=== PATIENT | male | born 1955 | race Caucasian/White ===

== ENCOUNTER 2025-03-05 12:24 | Outpatient (CLI) | payer MEDICARE, SELFPAY ==
--- NOTE | ~2025-03-05 | PE_ITS ---
EXAMINATION: PET_PETPSMAST_PT DATE: 03/05/2025 15:08 INDICATION: Prostate cancer TECHNIQUE: 4.219 mCi of Illucix Ga-68([id number]) was administered i.v. Low dose computed jazzmine graphy (CT) images were acquired from the base of the brain to the base of the brain to the proximal thighs for attenuation correction and anatomic localization. Positron emission tomography (PET) image s were acquired in the same distribution beginning 106 minutes after injection. Images including fuse d PET/CT images were reconstructed in axial, coronal, and sagittal planes. Automated exposure control technique was employed. The dose-length product was 855.83mGy-cm. COMPARISON: None FINDINGS: Head/neck: Typical pattern of symmetric physiologic increased activity in the lacrimal, parotid and submandibula r glands as well as along the mucosa of the nasal and oral cavities, pharynx and hypopharynx. No path ologically enlarged cervical lymphadenopathy or suspicious foci of increased uptake in the visualized head or neck. Chest: Dependent atelectasis in both lungs. No suspicious pulmonary nodules, pneumonia, pulmonary edema or p leural effusion. Heart size is normal. No pericardial effusion. Small of atherosclerotic coronary art cody calcification. Thoracic aorta is normal in caliber. No pathologically enlarged or PSMA avid thora cic lymphadenopathy. Abdomen/pelvis/proximal thighs: Physiologic renal accumulation and excretion of activity in the kidneys, bladder and along portions o f ureters. Photopenic defects associated with low-attenuation parapelvic cysts in the left kidney and a 1.7 cm intraparenchymal cyst at the right kidney. Prostatomegaly measuring 5.5 x 4.2 cm. There is subtle asymmetric uptake at the right posterior inferior aspect of the prostate with maximal SUV of 3 .7. Normal degree and slightly heterogenous pattern of increased uptake throughout the liver and sple en without radiologic correlate or dominant PSMA avid lesion. The gallbladder, pancreas and bilateral adrenal glands are normal. Moderate uptake scattered throughout the bowels with typical duodenal and proximal jejunal predominance and without radiologic correlate, also likely physiologic. No other ab normal foci of increased uptake or pathologically enlarged lymphadenopathy in the abdomen, pelvis or proximal thighs. Musculoskeletal: No suspicious lytic, blastic or abnormally PSMA avid bone lesions. Moderate thoracic spondylosis with bridging osteophytes at multiple levels consistent with diffuse idiopathic skeletal hyperostosis (DI SH). 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 IMPRESSION: 1. Subtle asymmetric mild uptake at the right posterior aspect of the prostate with maximal SUV of 3. 7 likely representing the site of reported primary prostate cancer. No evident metastatic disease. Reviewed, dictated and finalized at location A. IMPRESSION: 1. Subtle asymmetric mild uptake at the right posterior aspect of the prostate with maximal SUV of 3.7 likely representing the site of reported primary prosta te cancer. No evident metastatic disease.
--- OUTSIDE RECORDS SUMMARY | 2025-03-05 13:43 | XMS_ITS | Clinical Summary ---
Author Organization [facility] Address [address] [place] [address] Phone Care Team Providers Care Line Pilot Name Role Phone Gunnar Sim MD Primary Care Provider Allergies No known active allergies Medications acetaminophen (TYLENOL) 325 mg tablet Take 2 Tablets (650 mg) by mouth every 6 hours as needed for Pain, Mild / Temperature (pain/temp). 5 Active PHENobarbitaL 97.2 mg tabletIndicatio ns:Seizure disorder (CMS/HCC) Take 1 Tablet (97.2 mg) by mouth daily. 90 Tablet Active phenytoin sodium (DILANTIN) 100 mg extended release capsule Take 3 Capsules (300 mg) by mouth daily. 270 Capsule Active Active Problems Problem Noted Date Diagnosed Date Bandemia 12/31/2024 S/P laparoscopic surgery 12/31/2024 SBO (small bowel obstruction) 12/30/2024 MARVIN (acute kidney injury) 12/30/2024 Seizure disorder 12/30/2024 Enlarged prostate 12/30/2024 Encounters Date Type Department Care Team Description 02/16/2025 External Device Data ST[facility] ABSTRACTION Provider, Abstract 01/30/2025 External Device Data ST[facility] ABSTRACTION Provider, Abstract 01/30/2025 External Device Data [facility] ABSTRACTION Provider, Abstract 01/30/2025 External Device Data ST[facility] ABSTRACTION Provider, Abstract 01/17/2025 3:15 PM CDT Office Visit [facility] Trauma and General Surgery [address] [place] [address] Jose Harp MD SBO (small bowel obstruction) ([facility]) (Primary Dx) 01/09/2025 External Device Data STL ABSTRACTION Provider, Abstract 01/02/2025 External Device Data ST[facility] ABSTRACTION Provider, Abstract 01/02/2025 External Device Data ST[facility] ABSTRACTION Provider, Abstract 01/02/2025 External Device Data ST[facility] ABSTRACTION Provider, Abstract 12/30/2024 5:15 AM CDT Anesthesia Event [facility] Operating Room [address] [place] [address] Uzair Gonsalves MD 12/30/2024 4:55 AM CDT - 12/30/2024 6:15 AM CDT Surgery [facility] Operating Room [address] [place] [phone] Lauri Ott MD LAPAROSCOPIC ASSISTED LYSIS OF ADHESIONS, RELEASE OF SMALL BOWEL OBSTRUCTION 12/30/2024 Travel 12/29/2024 11:41 PM CDT - 01/02/2025 2:27 PM CDT Hospital Encounter [facility] Surgical [id number] [place] [phone] Javed Pierce MD Bagam, Vaghdevi, MD SBO (small bowel obstruction) ([facility]) Discharge Disposition: Home or Self Care from Last 3 Months Social History Tobacco Use Types Packs/Day Years Used Date Smoking Tobacco: Never Smokeless Tobacco: Never Tobacco Cessation:Counseling Given: Not Answered Feeling Safe Answer Date Recorded Are you in a relationship wi th someone who hurts you emotionally and/or physically? No 12/30/2024 Food Insecurity Answer Date Recorded Patient needs follow up regardin 01/17/2025 Transportation Needs Answer Date Record ed Patient needs follow up regardin 01/17/2025 Housing Stability Answer Date Recorded Social/Environmental Concerns No concerns Utility Needs Answer Date Recorded Patient needs follow up regardin 01/17/2025 Sex and Gender Information Value Date Recorded Sex Assigned at Not on file Legal Sex Male 7:45 PM CDT Gender Identity Not on file Sexual Orientation Not on file Last Filed Vital Signs Vital Sign Reading Time Taken Comments Blood Pressure 122/76 01/17/2025 3:08 PM CDT Pulse 78 01/17/2025 3:08 PM CDT Temperature 36.7 C (98.1 F) 01/02/2025 8:26 AM CDT Respiratory Rate 18 01/02/2025 8:26 AM CDT Oxygen Saturation 96% 01/02/2025 8:26 AM CDT Inhaled Oxygen Concentration - - Weight 72.6 kg (160 lb) 01/17/2025 3:08 PM CDT Height 177.8 cm (5' 10) 01/17/2025 3:08 PM CDT Body Mass Index 22.96 01/17/2025 3:08 PM CDT Plan of Treatment Health Maintenance Due Date Last Done Comments DTAP/TDAP/TD VACCINES (1 - Tdap) 1976 COLORECTAL SCREENING 2002 Colorectal Cancer Screening 2002 FIT-DNA Q 3 years 2002 FIT/FOBT Q 1 year 2002 Flex Sig/CT Colonography Q 5 years 2002 PNEUMOCOCCAL VACCINE 50+ YEARS (1 of 1 - PCV) 03/05/20 07 ZOSTER VACCINE (1 of 2) 2007 INFLUENZA VACCINE (#1) 2024 RSV VACCINE (60+ or ) (1 - 1-dose 75+ series) 2032 Procedures Procedure Name Priority Date/Time Associated Diagnosis Comments TELEMETRY REPORT 01/03/2025 3:03 PM CDT TELEMETRY REPORT 01/03/2025 2:56 PM CDT TELEMETRY REPORT 01/02/2025 3:02 PM CDT TELEMETRY REPORT 01/02/2025 2:28 PM CDT TELEMETRY REPORT 01/01/2025 3:38 PM CDT TELEMETRY REPORT 01/01/2025 3:10 PM CDT TELEMETRY REPORT 01/01/2025 2:44 PM CDT TELEMETRY REPORT 01/01/2025 2:30 PM CDT BASIC METABOLIC PANEL Routine 01/01/2025 4:04 AM CDT CBC WITH DIFFERENTIAL Routine 12/31/2024 4:33 AM CDT COMPREHENSIVE METABOLIC PANEL Routine 12/31/2024 4:33 AM CDT MAGNESIUM LEVEL Routine 12/31/2024 4:33 AM CDT PHENOBARBITAL LEVEL Routine 12/30/2024 1 1:57 AM CDT PHENYTOIN LEVEL, FREE Routine 12/30/2024 11:57 AM CDT POC GLUCOSE Routine 12/30/2024 8:13 AM CDT VERIFICATION BLOOD GROUP Stat 12/30/2024 5:05 AM CDT TYPE AND SCREEN Stat 12/30/2024 4:59 AM CDT PSA Routine 12/30/2024 4:59 AM CDT LAPAROSCOPY DIAGNOSTIC/OPERATIVE 12/30/2024 4:55 AM CDT UNKNOWN XR ABDOMEN FOR FEEDING TUBE 1 VW Stat 12/30/2024 2:20 AM CDT LACTIC ACID Stat 12/30/2024 1:04 AM CDT CBC WITH DIFFERENTIAL Stat 12/30/2024 1:04 AM CDT COMPREHENSIVE METABOLIC PANEL Stat 12/30/2024 1:04 AM CDT MAGNESIUM LEVEL Stat 12/30/2024 1:04 AM CDT EKG 12-LEAD Stat 12/30/2024 12:[address] PRIOR STUDY Routine 12/29/2024 6:45 PM CDT X-RAY PRIOR STUDY Routine 12/29/2024 5:3 5 PM CDT from Last 3 Months Results * TELEMETRY REPORT (01/03/2025 3:03 PM CDT) Only the most recent of8 resultswithin the time period is included. us Provider Scanning ECG ORDERABLES Final Result * (ABNORMAL) BASIC METABOLIC PANEL (01/01/2025 4:04 AM CDT) SODIUM 135(L) 136 - 145 mmol/L 01/01/2025 5:07 AM CDT [facility] POTASSIUM 4.5 3.4 - 5.1 mmol/L 01/01/2025 5:07 AM T [facility] CHLORIDE 102 98 - 107 mmol/L 01/01/2025 5:07 AM T [facility] CO2 25 22 - 29 mmol/L 01/01/2025 5:07 AM T [facility] CALCIUM 8.3(L) 8.6 - 10.4 mg/dL 01/01/2025 5:07 AM T [facility] BUN 9 6 - 20 mg/dL 01/01/2025 5:07 AM T [facility] CREATININE 0.86 0.67 - 1.17 mg/dL 01/01/2025 5:07 AM T [facility] GLUCOSE 103(H) 74 - 99 mg/dL 01/01/2025 5:07 AM T [facility] GFR >60 >=60 mL/min/1.7 3 sq meter 01/01/2025 5:07 AM [facility] Comment:eGFR calculated with 2020 CKD-EPI equation. Vegetarian diet, extremely high or low muscle mass, and may affect results. Cystatin C with Glomerular Filtration Rate is a suitable alternative for these patients. ANION GAP 8 8 - 16 mmol/L 01/01/2025 5:07 AM T [facility] Blood Venipuncture / Unknown 01/01/2025 4:04 AM CDT 01/01/2025 4:28 AM CDT us Rc Huber MD CHEMISTRY ORDERABLES Final Res ult [facility] CLIA# [id number] [place] [address] * (ABNORMAL) CBC WITH DIFFERENTIAL (12/31/2024 4:33 AM CDT) Only the most recent of2 resultswithin the time period is included. [facility] WBC 10.0(H) 4.0 - 9.8 K/uL 12/31/2024 6:30 AM CDT [facility] RBC 4.22(L) 4.50 - 5.40 M/uL 12/31/2024 6:30 AM CDT [facility] HEMOGLOBIN 13.0(L) 13.6 - 16.5 g/dL 12/31/2024 6:30 AM CDT [facility] Comment:Cbc results verified by caterina jennings rn HEMATOCRIT 39.3(L) 40.0 - 48.0 % 12/31/2024 6:30 AM CDT [facility] MCV 93.1 82.0 - 99.0 fL 12/31/2024 6:30 AM CDT [facility] MCH 30.8 27.2 - 32.6 pg 12/31/2024 6:30 AM CDT [facility] MCHC 33.1 31.5 - 35.5 g/dL 12/31/2024 6:30 AM CDT [facility] RDW 14.8(H) 11.5 - 14.5 % 12/31/2024 6:30 AM CDT [facility] RDW-STDEV 51.0(H) 37.1 - 48.7 fL 12/31/2024 6:30 AM CDT [facility] PLATELETS 199 140 - 350 K/uL 12/31/2024 6:30 AM CDT [facility] MPV 9.8 9.3 - 12.4 fL 12/31/2024 6:30 AM CDT [facility] NEUTROPHILS 70 % 12/31/2024 6:30 AM CDT [facility] LYMPHOCYTES 13 % 12/31/2024 6:30 AM CDT [facility] MONOCYTES 16 % 12/31/2024 6:30 AM CDT [facility] EOSINOPHILS 1 % 12/31/2024 6:30 AM CDT [facility] BASOPHILS 1 % 12/31/2024 6:30 AM CDT [facility] IMMATURE GRANULOCYTES 0 % 12/31/2024 6:30 AM CDT [facility] NEUTROPHIL ABSOLUTE 6.99 1.90 - 7.00 K/uL 12/31/2024 6:30 AM CDT [facility] LYMPHOCYTE ABSOLUTE 1.31 0.70 - 4.50 K/uL 12/31/2024 6:30 AM CDT [facility] MONOCYTE ABSOLUTE 1.55(H) 0.10 - 1.30 K/uL 12/31/2024 6:30 AM CDT [facility] EOSINOPHIL ABSOLUTE 0.10 0.00 - 0.70 K/uL 12/31/2024 6:30 AM CDT [facility] BASOPHILS ABSOLUTE 0.05 0.00 - 0.20 K/uL 12/31/2024 6:30 AM CDT [facility] IMMATURE GRANULOCYTES ABSOLUTE 0.03 0.00 - 0.03 K/uL 12/31/2024 6:30 AM CDT [facility] Blood Venipuncture / Unknown 12/31/2024 4:33 AM CDT 12/31/2024 5:27 AM CDT Lauri Ott MD HEMATOLOGY ORDERABL ES Final Result [facility] CLIA# [id number] [place] [address] * MAGNESIUM LEVEL (12/31/2024 4:33 AM CDT) Only the most recent of2 resultswithin the time period is included. MAGNESIUM 1.9 1.6 - 2.6 mg/dL 12/31/2024 6:15 AM [facility] / Unknown 12/31/2024 4:33 AM CDT 12/31/2024 5:28 AM CDT Delano Khoury MD CHEMISTRY ORDERA BLES Final Result [facility] CLIA# [id number] [place] [address] * (ABNORMAL) COMPREHENSIVE METABOLIC PANEL (12/31/2024 4:33 AM CDT) Only the most recent of2 resultswithin the time period is included. SODIUM 139 136 - 145 mmol/L 12/31/2024 6:15 AM T [facility] POTASSIUM 4.1 3.4 - 5.1 mmol/L 12/31/2024 6:15 AM [facility] CHLORIDE 106 98 - 107 mmol/L 12/31/2024 6:15 AM T [facility] CO2 24 22 - 29 mmol/L 12/31/2024 6:15 AM [facility] CALCIUM 7.7(L) 8.6 - 10.4 mg/dL 12/31/2024 6:15 AM [facility] BUN 17 6 - 20 mg/dL 12/31/2024 6:15 AM T [facility] CREATININE 0.86 0.67 - 1.17 mg/dL 12/31/2024 6:15 AM T [facility] GLUCOSE 130(H) 74 - 99 mg/dL 12/31/2024 6:15 AM T [facility] TOTAL PROTEIN 5.8(L) 6.3 - 8.7 g/dL 12/31/2024 6:15 AM T [facility] ALBUMIN 3.2(L) 3.5 - 5.2 g/dL 12/31/2024 6:15 AM T [facility] BILIRUBIN TOTAL 0.4 0.2 - 1.1 mg/dL 12/31/2024 6:15 AM CDT [facility] ALKALINE PHOSPHATASE 161(H) 40 - 150 U/L 12/31/2024 6:15 AM CDT [facility] AST 22 0 - 41 U/L 12/31/2024 6:15 AM CDT [facility] ALT 14 0 - 41 U/L 12/31/2024 6:15 AM CDT [facility] GFR >60 >=60 mL/min/1.7 3 sq meter 12/31/2024 6:15 AM CDT [facility] Comment:eGFR calculated with 2020 CKD-EPI equation. Vegetarian diet, extremely high or low muscle mass, and may affect results. Cystatin C with Glomerular Filtration Rate is a suitable alternative for these patients. ANION GAP 9 8 - 16 mmol/L 12/31/2024 6:15 AM CDT [facility] Blood Venipuncture / Unknown 12/31/2024 4:33 AM CDT 12/31/2024 5:28 AM CDT Delano Khoury MD CHEMISTRY ORDERA BLES Final Result [facility] CLIA# [id number] [place] [address] * (ABNORMAL) PHENYTOIN LEVEL, FREE (12/30/2024 11:57 AM CDT) Pathologist [facility] PHENYTOIN FREE 0.8(L) 1.0 - 2.0 mg/L 01/02/2025 9:52 PM CDT [facility] Blood Venipuncture / Unknown 12/30/2024 11:57 AM CDT 12/30/2024 12:10 PM CDT Narrative [facility] - 01/02/2025 9:52 PM CDT Performing Organization Information: Site ID: [id number] Name: [employer] Address: [address] [place] [address] Director: Benton Rubio M.D.,PhD Rc Huber MD CHEMISTRY ORDERABLES Final Res ult [facility] [phone] * PHENOBARBITAL LEVEL (12/30/2024 11:57 AM CDT) PHENOBARBITAL LEVEL 24.6 15.0 - 40.0 ug/mL 12/30/2024 3:03 PM CDT [facility] Blood Venipuncture / Unknown 12/30/2024 11:57 AM CDT 12/30/2024 12:10 PM CDT Narrative [facility] - 12/30/2024 3:03 PM CDT Phenobarbital Toxic Levels: >50.0 ug/mL Rc Huber MD CHEMISTRY ORDERABLES Final Res ult Performing Organization Address [facility]/ZIP Co de Phone Number [facility] [employer] [facility] CLIA# [id number] [address] [place] [address] * (ABNORMAL) POC GLUCOSE (12/30/2024 8:13 AM CDT) GLUCOSE POC 141(H) 74 - 99 mg/dL 12/30/2024 8:13 AM CDT [facility] POINT OF CARE SPECIMEN SOURCE, GLUCOSE POC Whole Blood 12/30/2024 8:13 AM CDT [facility] POINT OF CARE Blood, whole 12/30/2024 8:13 AM CDT 12/30/2024 8:21 AM CDT Rc Huber MD POINT OF CARE TESTING Final Re sult [facility] POINT OF CARE CLIA # [id number] [place] [address] * VERIFICATION BLOOD GROUP (12/30/2024 5:05 AM CDT) ABO GROUP B 12/30/2024 6:18 AM CDT [facility] RH (D) TYPE Positive 12/30/2024 6:18 AM CDT [facility] Blood Venipuncture / Unknown 12/30/2024 5:05 AM CDT 12/30/2024 5:07 AM CDT Uzair Gonsalves MD BLOOD BANK ORDERABLES Fin al Result [facility] CLIA# [id number] [place] [address] * TYPE AND SCREEN (12/30/2024 4:59 AM CDT) ABO GROUP B 12/30/2024 6:04 AM CDT [facility] RH (D) TYPE Positive 12/30/2024 6:04 AM CDT [facility] ANTIBODY SCREEN Negative 12/30/2024 6:04 AM CDT [facility] Blood Venipuncture / Unknown 12/30/2024 4:59 AM CDT 12/30/2024 5:07 AM CDT Uzair Gonsalves MD BLOOD BANK ORDERABLES [place] judie Result - Final [facility] CLIA# [id number] [place] [address] * (ABNORMAL) PSA (12/30/2024 4:59 AM CDT) PSA 11.8(H) <4.0 ng/mL 12/30/2024 10:28 AM CDT [facility] Blood Venipuncture / Unknown 12/30/2024 4:59 AM CDT 12/30/2024 5:15 AM CDT Narrative [facility] - 12/30/2024 10:28 AM CDT The concentration of PSA in a given specimen, as determined by assays from different manufacturers, can vary because of differences in assay methods and reagent specificity. Values obtained with different assay methods cannot be used interchangeably. The testing method in use is the ABHIJIT Electrochemiluminescence Immunoassay. Delano Khoury MD CHEMISTRY ORDERA BLES Final Result [facility] CLIA# [id number] [address] [place] [address] * XR ABDOMEN FOR FEEDING TUBE 1 VW (12/30/2024 2:20 AM CDT) Anatomical Region Laterality Modality Abdomen Computed Radiogr aphy 12/30/2024 2:20 AM CDT Impressions 12/30/2024 7:03 AM CDT IMPRESSION: 1. Enteric tube ends in the gastric body. DICTATION LOCATION: Location 7 - [facility] Narrative 12/30/2024 7:03 AM CDT XR ABDOMEN FOR FEEDING TUBE 1 VW DATE: 12/30/2024 2:20 AM HISTORY: Check Tube Placement. FINDINGS: Enteric tube has in place and terminates in the gastric body. Gaseous distention of the small bowel is present consistent with obstruction. Javed Pierce MD DIAGNOSTIC IMAGING ORDERABLES Ed ited Result - Final * LACTIC ACID (12/30/2024 1:04 AM CDT) LACTIC ACID 1.7 <=2.0 mmol/L 12/30/2024 2:01 AM CDT [facility] [employer] [facility] Blood Venipuncture / Unknown 12/30/2024 1:04 AM CDT 12/30/2024 1:33 AM CDT Delano Khoury MD CHEMISTRY ORDERA BLES Final Result [id number] [address] [place] [address] * EKG 12-LEAD (12/30/2024 12:58 AM CDT) 12/30/2024 12:5 8 AM CDT Narrative INTERFACE SYSTEM - 12/31/2024 8:37 [place] [address] Test Date: 2024-12-30 Pat Name: TAMIR MORA Department: 98 Room: [facility] Gender: Male [employer]: [id number] : 1955 Requested By: JAVED PIERCE Order Number: [id number] Reading MD: Jimmy Sauceda Measurements Intervals [place] Rate: 92 P: 32 WV: 140 QRS: 41 QRSD: 84 T: 49 QT: 324 QTc: 400 Interpretive Statements Normal sinus rhythm Cannot rule out Inferior infarct, age undetermined Nonspecific ST changes Abnormal ECG No previous ECG available for comparison Electronically Signed On 12-31-2024 20:37:46 CDT by Jimmy Sauceda Procedure Note Jimmy Sauceda MD - 12/31/2024 [place] [address] Test Date: 2024-12-30 Pat Name: TAMIR MORA Department: 98 Room: 5400 Gender: Male [employer]: [id number] : 1955 Requested By: JAVED PIERCE Order Number: [id number] Reading MD: Jimmy Sauceda Measurements Intervals [place] Rate: 92 P: 32 WV: 140 QRS: 41 QRSD: 84 T: 49 QT: 324 QTc: 400 Interpretive Statements Normal sinus rhythm Cannot rule out Inferior infarct, age undetermined Nonspecific ST changes Abnormal ECG No previous ECG available for comparison Electronically Signed On 12-31-2024 20:37:46 CDT by Jimmy Sauceda Delano Khoury MD ECG ORDERABLES Final Result INTERFACE SYSTEM Refer to clinic/hospital department * CT PRIOR STUDY (12/29/2024 6:45 PM CDT) [facility] - 12/29/2024 11:53 PM CDT This exam was auto finalized to allow images to be scanned to PACS. us External Provider [facility] CT ORDERABLES Final Res ult Performing Organization Address City/[facility]/ZIP Co de Phone Number [facility] CLIA # [id number] [place] [address] * XR PRIOR STUDY (12/29/2024 5:35 PM CDT) [facility] - 12/29/2024 11:54 PM CDT This exam was auto finalized to allow images to be scanned to PACS. External Provider [facility] DIAGNOSTIC IMAGING ORDERA BLES Final Result Performing Organization Address [facility] de Phone Number [facility] CLIA # [id number] [place] [address] from Last 3 Months Insurance MEDICARE PART A AND B [employer] MEDICARE SUPP AESSI Advance Directives For more information, please contact: [phone] * Full Code (Latest Code Status on File) Date Activated Date Inactivated Comments 12/30/2024 8:45 AM 01/02/2025 4:33 PM * Full Code Date Activated Date Inactivated Comments 12/30/2024 1:06 AM 12/30/2024 8:45 AM Care Teams Line Pilot Relationship Specialty Start Date End Date Gunnar Sim MD PCP - General Family Practice 01/17/25
--- OUTSIDE RECORDS SUMMARY | 2025-03-05 13:43 | XMS_ITS | Clinical Summary ---
Author Organization [facility] Address [address] [place] [address] Phone Care Team Providers Care Senior Property Manager Name Role Phone Provider, None Primary Care Provider Unavailabl e Allergies No known active allergies Medications PHENobarbital 97.2 MG Tablet Take 97.2 mg by mouth daily. 4 Active phenytoin (DILANTIN) 100 MG ER capsule take 3 capsules by mouth daily 4 Active silver sulfADIAZINE (SILVADENE) 1 % Cream Apply 2 times daily. Application Site: apply to right leg twice daily until healed (Description and Location) 50 g 1 4 Active Encounters Date Type Department Care Team Description 12/29/2024 5:19 PM CDT - 12/29/2024 10:55 PM CDT Emergency [facility] Emergency [address] [place] [address] Brigid Forbes APRN, ELI Small bowel obstruction (HCC) Discharge Disposition: Short Term [facility] for [facility] 12/29/2024 Travel from Last 3 Months Social History Tobacco Use Types Packs/Day Years Used Date Smoking Tobacco: Never Smokeless Tobacco: Never Tobacco Cessation:Counseling Given: Not Answered Alcohol Use Standard Drinks/Week Comments Not Asked 0 (1 standard drink = 0.6 oz pur e alcohol) rarely Sex and Gender Information Value Date Recorded Sex Assigned at Not on file Legal Sex Male 1:39 PM CDT Gender Identity Not on file Sexual Orientation Not on file Last Filed Vital Signs Vital Sign Reading Time Taken Comments Blood Pressure 134/84 12/29/2024 9:30 PM CDT Pulse 84 12/29/2024 10:54 PM CDT Temperature 37.2 C (98.9 F) 12/29/2024 5:24 PM CDT Respiratory Rate 16 12/29/2024 10:54 PM CDT Oxygen Saturation 100% 12/29/2024 10:54 PM CDT Inhaled Oxygen Concentration - - Weight 72.6 kg (160 lb) 12/29/2024 5:24 PM CDT Height 177.8 cm (5' 10) 12/29/2024 5:24 PM CDT Body Mass Index 22.96 12/29/2024 5:24 PM CDT Plan of Treatment Health Maintenance Due Date Last Done Comments Hepatitis C Virus (HCV) Screening 1955 TdaP Immunization 1955 Colonoscopy 2002 Colorectal Cancer Screening 2002 Cologuard 2007 Immunochemical Fecal Occult Blood 2007 Pneumococcal Immunization (5 0+ years) (1 of 1 - PCV) 2007 Zoster Immunization (1 of 2) 2007 PSA Discussion 2012 SARS-COV-2 Immunization (1 - 2023- season) 2024 Influenza Immunization (Seas on Ended) 2025 Respiratory Syncytial Virus (RSV) Immunization (Adult) (1 - 1-dose 75+ series) 2032 Hepatitis B Immunization Aged Out No longer eligible based on patient's age to complete this topic Meningococcal Immunization (ACWY) Aged Out No longer eligible based on patient's age to complete this topic Rotavirus Immunization Aged Out No lo nger eligible based on patient's age to complete this topic Procedures Procedure Name Priority Date/Time Associated Diagnosis Comments XR ABDOMEN KUB FLAT PLATE STAT 12/29/2024 8:[address] ABDOMEN PELVIS W/ CONTRAST Stat with Interpretation 12/29/2024 6:49 PM CDT URINALYSIS REFLEX IF INDICATED BY ABNORMAL RESULTS STAT 12/29/2024 5:55 PM CDT CBC WITH AUTO DIFFERENTIAL STAT 12/29/2024 5:50 PM CDT LIPASE STAT 12/29/2024 5:50 PM CDT CMP (COMPREHENSIVE METABOLIC PANEL) STAT 12/29/2024 5:50 PM CDT COMPLETE BLOOD COUNT (CBC) WITH DIFF STAT 12/29/2024 5:50 PM CDT XR ABDOMEN KUB FLAT PLATE STAT 12/29/2024 5:45 PM CDT from Last 3 Months Results * XR ABDOMEN KUB FLAT PLATE (12/29/2024 8:52 PM CDT) Only the most recent of2 resultswithin the time period is included. Anatomical Region Laterality Modality Abdomen N/A Digital Radiogra phy 12/29/2024 9:05 PM CDT Impressions 12/29/2024 9:08 PM CDT IMPRESSION: The tip of the enteric tube is in the body of the stomach. Small-bowel obstruction. Whether this is due to internal hernia, adhesions or other cause is unknown. Narrative 12/29/2024 9:08 PM CDT EXAM DESCRIPTION: XR ABDOMEN KUB FLAT PLATE REASON FOR STUDY: NG tube placement. TECHNIQUE: Single radiographic view of the abdomen. COMPARISON: 12/29/2024 at 5:34 p.m. FINDINGS: BOWEL: Multiple distended small bowel loops in the left upper quadrant are again identified. SOFT TISSUES: No abnormal calcifications. LINES/TUBES: The tip of the enteric tube is in the body of the stomach. BONES: No acute osseous abnormality. THIS IS AN ELECTRONICALLY VERIFIED FINAL REPORT 12/29/2024 9:05 PM - Electronically signed by Matti Christine M.D. AMIRA: AMIRA Report ID: [id number] Reading Location: [id number] Procedure Note Uzair Christine MD - 12/29/2024 EXAM DESCRIPTION: XR ABDOMEN KUB FLAT PLATE REASON FOR STUDY: NG tube placement. TECHNIQUE: Single radiographic view of the abdomen. COMPARISON: 12/29/2024 at 5:34 p.m. FINDINGS: BOWEL: Multiple distended small bowel loops in the left upper quadrant are again identified. SOFT TISSUES: No abnormal calcifications. LINES/TUBES: The tip of the enteric tube is in the body of the stomach. BONES: No acute osseous abnormality. THIS IS AN ELECTRONICALLY VERIFIED FINAL REPORT 12/29/2024 9:05 PM - Electronically signed by Matti Christine M.D. AMIRA: AMIRA Report ID: [id number] Reading Location: [id number] IMPRESSION: The tip of the enteric tube is in the body of the stomach. Small-bowel obstruction. Whether this is due to internal hernia, adhesions or other cause is unknown. us Brigid Forbes APRN, ELI IMG DIAGNOSTIC ORD ERABLES Final Result * CT ABDOMEN PELVIS W/ CONTRAST (12/29/2024 6:49 PM CDT) Anatomical Region Laterality Modality Abdomen N/A Computed Tomogra phy 12/29/2024 7:19 PM CDT Impressions 12/29/2024 7:22 PM CDT IMPRESSION: High-grade mechanical small bowel obstruction with at least 1 area of transition in the left upper quadrant. Obstruction is complicated by mesenteric edema and potentially pneumatosis. Surgical consultation recommended. Slight Swirled appearance of the mesentery in the left upper quadrant with the relative area of narrowing in the left upper quadrant jejunum. Findings elevate suspicion of a closed loop obstruction, this could potentially be an internal hernia such as a trans mesenteric small-bowel hernia although not definitive. The absence of a history of surgery makes adhesion or stricture less likely. Multiple low-density lesions in the liver and spleen likely cysts. Marked enlargement of the prostate with lobular impression upon the urinary bladder base. Correlation with PSA level recommended. Right renal cyst and left peripelvic cysts. Critical results discussed with nurse practitioner Keen by Dr. Mantilla at approximately 7:17 pm central time on 12/29/2024 . Narrative 12/29/2024 7:22 PM CDT EXAM DESCRIPTION: CT ABDOMEN PELVIS W/ CONTRAST REASON FOR STUDY: Abdominal pain and bloating the past few days, his last BM was three days ago. No history of surgery. TECHNIQUE: CT scan of the abdomen and pelvis performed with intravenous and without oral contrast using helical scanning technique with dynamic intravenous contrast injection. Reconstructed coronal and sagittal MPR images reviewed. All images stored on PACS. Automated exposure control was used as a dose optimization technique for this examination. CONTRAST TYPE/DOSE: 81mL of IOPAMIDOL 76 % IV SOLN injected via Intravenous COMPARISON: Correlation with abdominal radiograph earlier the same day. FINDINGS: LOWER CHEST: Lung bases show mild reticular atelectasis. There is no pleural effusion. LIVER: Liver shows multiple low-density, predominantly subcentimeter lesions likely cysts. There are few slightly larger low-density lesions 1.5 cm also likely cysts. Portal and hepatic veins are patent. GALLBLADDER: No gallstones or overt inflammatory change. BILE DUCTS: No biliary ductal dilation is seen. SPLEEN: Spleen size is notable for multiple low-density lesions which may be cysts, although micro abscesses or a lymphoproliferative process could potentially have this appearance although thought less likely. PANCREAS: No pancreatic mass or inflammatory change. ADRENALS: Normal KIDNEYS/URINARY TRACT: No renal calculi. There is no hydronephrosis or hydroureter. From the lower pole the right kidney there is a low-density lesion 1.9 cm, 21 Hounsfield units likely a cyst. There are left peripelvic cysts. No ureteral calculus. No hydronephrosis or hydroureter. The prostate is enlarged and this impresses upon the urinary bladder base. GI: The colon is decompressed. The appendix is normal. The terminal ileum is decompressed. There is evidence of a high-grade mechanical small bowel obstruction, the proximal and mid small bowel are dilated and fluid-filled. There is a least 1 area of transition in the small bowel seen on axial series 2, image 97 and on coronal series 601, image 39. There is a slight swirled appearance of the mesentery in the left upper quadrant with the relative area of narrowing in the left upper quadrant jejunum. The possibility of a closed loop obstruction is not excluded. There are few foci of gas along the bowel lumen, for example on series 2, image 73), uncertain if these are trapped foci of gas or possibly a very small amount of pneumatosis. PERITONEUM: There is edema within the small bowel mesentery. RETROPERITONEUM: No retroperitoneal mass or lymphadenopathy. REPRODUCTIVE: Marked enlargement of the prostate with lobular impression upon the urinary bladder base. No adnexal mass. VASCULATURE: Abdominal aorta is nonaneurysmal. MUSCULOSKELETAL: Bone windows demonstrate no acute or aggressive osseous abnormality. OTHER: No other abnormality. THIS IS AN ELECTRONICALLY VERIFIED FINAL REPORT 12/29/2024 7:19 PM - Electronically signed by Sae Mantilla M.D. CH: JAKE Report ID: [id number] Reading Location: [id number] Procedure Note Sae Mantilla Jr., MD - 12/29/2024 EXAM DESCRIPTION: CT ABDOMEN PELVIS W/ CONTRAST REASON FOR STUDY: Abdominal pain and bloating the past few days, his last BM was three days ago. No history of surgery. TECHNIQUE: CT scan of the abdomen and pelvis performed with intravenous and without oral contrast using helical scanning technique with dynamic intravenous contrast injection. Reconstructed coronal and sagittal MPR images reviewed. All images stored on PACS. Automated exposure control was used as a dose optimization technique for this examination. CONTRAST TYPE/DOSE: 81mL of IOPAMIDOL 76 % IV SOLN injected via Intravenous COMPARISON: Correlation with abdominal radiograph earlier the same day. FINDINGS: LOWER CHEST: Lung bases show mild reticular atelectasis. There is no pleural effusion. LIVER: Liver shows multiple low-density, predominantly subcentimeter lesions likely cysts. There are few slightly larger low-density lesions 1.5 cm also likely cysts. Portal and hepatic veins are patent. GALLBLADDER: No gallstones or overt inflammatory change. BILE DUCTS: No biliary ductal dilation is seen. SPLEEN: Spleen size is notable for multiple low-density lesions which may be cysts, although micro abscesses or a lymphoproliferative process could potentially have this appearance although thought less likely. PANCREAS: No pancreatic mass or inflammatory change. ADRENALS: Normal KIDNEYS/URINARY TRACT: No renal calculi. There is no hydronephrosis or hydroureter. From the lower pole the right kidney there is a low-density lesion 1.9 cm, 21 Hounsfield units likely a cyst. There are left peripelvic cysts. No ureteral calculus. No hydronephrosis or hydroureter. The prostate is enlarged and this impresses upon the urinary bladder base. GI: The colon is decompressed. The appendix is normal. The terminal ileum is decompressed. There is evidence of a high-grade mechanical small bowel obstruction, the proximal and mid small bowel are dilated and fluid-filled. There is a least 1 area of transition in the small bowel seen on axial series 2, image 97 and on coronal series 601, image 39. There is a slight swirled appearance of the mesentery in the left upper quadrant with the relative area of narrowing in the left upper quadrant jejunum. The possibility of a closed loop obstruction is not excluded. There are few foci of gas along the bowel lumen, for example on series 2, image 73), uncertain if these are trapped foci of gas or possibly a very small amount of pneumatosis. PERITONEUM: There is edema within the small bowel mesentery. RETROPERITONEUM: No retroperitoneal mass or lymphadenopathy. REPRODUCTIVE: Marked enlargement of the prostate with lobular impression upon the urinary bladder base. No adnexal mass. VASCULATURE: Abdominal aorta is nonaneurysmal. MUSCULOSKELETAL: Bone windows demonstrate no acute or aggressive osseous abnormality. OTHER: No other abnormality. THIS IS AN ELECTRONICALLY VERIFIED FINAL REPORT 12/29/2024 7:19 PM - Electronically signed by Sae Mantilla M.D. CH: JAKE Report ID: [id number] Reading Location: [id number] IMPRESSION: High-grade mechanical small bowel obstruction with at least 1 area of transition in the left upper quadrant. Obstruction is complicated by mesenteric edema and potentially pneumatosis. Surgical consultation recommended. Slight Swirled appearance of the mesentery in the left upper quadrant with the relative area of narrowing in the left upper quadrant jejunum. Findings elevate suspicion of a closed loop obstruction, this could potentially be an internal hernia such as a trans mesenteric small-bowel hernia although not definitive. The absence of a history of surgery makes adhesion or stricture less likely. Multiple low-density lesions in the liver and spleen likely cysts. Marked enlargement of the prostate with lobular impression upon the urinary bladder base. Correlation with PSA level recommended. Right renal cyst and left peripelvic cysts. Critical results discussed with nurse practitioner Andrei by Dr. Mantilla at approximately 7:17 pm central time on 12/29/2024 . Brigid Forbes HEARING EXAMINER, FIRE LOOKOUT IMG CT ORDERABLES Final Result * (ABNORMAL) Urinalysis w/ Reflex (12/29/2024 5:55 PM CDT) SPECIFIC GRAVITY 1.030 1.003 - 1.030 12/29/2024 6:19 PM CDT [facility] URINE PH 5.0 5.0 - 9.0 12/29/2024 6:19 PM CDT [facility] WBC ESTERASE 25 /ul(A) Negative 12/29/2024 6:19 PM CDT [facility] NITRITE Negative Negative 12/29/2024 6:19 PM CDT [facility] PROTEIN, RANDOM URINE 100 mg/dL(A) Negative 12/29/2024 6:19 PM CDT [facility] URINE GLUCOSE, QUAL Negative Negative 12/29/2024 6:19 PM CDT [facility] URINE KETONES 5 mg/dL(A) Negative 12/29/2024 6:19 PM CDT [facility] UROBILINOGEN 1 mg/dL(A) Normal mg/dL 12/29/2024 6:19 PM CDT [facility] URINE BLOOD 25 /uL(A) Negative cody/ul 12/29/2024 6:19 PM CDT [facility] URINALYSIS COLOR Dark Yellow 12/29/2024 6:19 PM CDT [facility] URINALYSIS CLARITY Slightly Cloudy 12/29/2024 6:19 PM CDT [facility] WBC (Urine) 0-5 Negative, 0-5 /hpf 12/29/2024 6:19 PM CDT [facility] URINE RBC'S 3-5(A) Negative, 0-2 /hpf 12/29/2024 6:19 PM CDT [facility] EPITHELIAL CELLS Occasional /lpf 12/29/2024 6:19 PM CDT [facility] BACTERIA, URINE Few(A) Negative /hpf 12/29/2024 6:19 PM CDT [facility] CRYSTALS Amorphous urates 12/29/2024 6:19 PM CDT [facility] Urine URINE SPECIMEN / Unknown Non-Phlebotomy Collection / Unknown 12/29/2024 5:55 PM CDT 12/29/2024 6:01 PM CDT us Nikhil Galvan MD URINE ORDERABLES Final Res ult [facility] [address] [place] [address] * (ABNORMAL) CBC with Auto Differential (12/29/2024 5:50 PM CDT) WBC 12.64(H) 4.00 - 12.00 10(3)/mcL 12/29/2024 6:03 PM CDT [facility] RBC 5.59 4.40 - 5.80 10(6)/mcL 12/29/2024 6:03 PM CDT [facility] HEMOGLOBIN (HGB) 17.3(H) 13.0 - 16.5 g/dL 12/29/2024 6:03 PM CDT [facility] HEMATOCRIT (HCT) 51.8(H) 38.0 - 50.0 % 12/29/2024 6:03 PM CDT [facility] MCV 92.7 82.0 - 96.0 fL 12/29/2024 6:03 PM CDT [facility] MCH 30.9 26.0 - 32.0 pg 12/29/2024 6:03 PM CDT [facility] MCHC 33.4 31.0 - 36.0 g/dL 12/29/2024 6:03 PM CDT [facility] PLATELET COUNT 260 140 - 440 10(3)/mcL 12/29/2024 6:03 PM CDT [facility] RDW 14.4 11.8 - 15.5 % 12/29/2024 6:03 PM CDT [facility] MPV 9.5 8.0 - 12.6 fL 12/29/2024 6:03 PM CDT [facility] NEUTROPHILS 85.5(H) 40.0 - 68.0 % 12/29/2024 6:03 PM CDT [facility] LYMPHOCYTES 6.2(L) 19.0 - 49.0 % 12/29/2024 6:03 PM CDT [facility] MONOCYTES 8.0 3.0 - 13.0 % 12/29/2024 6:03 PM CDT [facility] EOSINOPHILS 0.1 0.0 - 8.0 % 12/29/2024 6:03 PM CDT [facility] BASOPHILS 0.2 0.0 - 1.0 % 12/29/2024 6:03 PM CDT [facility] ABSOLUTE NEUTROPHILS 10.81(H) 1.40 - 5.30 10(3)/mcL 12/29/2024 6:03 PM CDT [facility] ABSOLUTE LYMPHOCYTES 0.78(L) 0.90 - 3.30 10(3)/mcL 12/29/2024 6:03 PM CDT [facility] ABSOLUTE MONOCYTES 1.01(H) 0.10 - 0.90 10(3)/mcL 12/29/2024 6:03 PM CDT [facility] ABSOLUTE EOSINOPHIL 0.01 0.00 - 0.50 10(3)/mcL 12/29/2024 6:03 PM CDT [facility] ABSOLUTE BASOPHILS 0.03 0.00 - 0.10 10(3)/mcL 12/29/2024 6:03 PM CDT [facility] NRBC PER 100 WBC 0 12/30/19 25 6:03 PM CDT [facility] Blood Venipuncture / Unknown 12/29/2024 5:50 PM CDT 12/29/2024 6:01 PM CDT us Nikhil Galvan MD HEMATOLOGY ORDERABLES Valerie l Result [facility] [address] [place] [address] * Lipase (12/29/2024 5:50 PM CDT) LIPASE 40 8 - 78 U/L 12/29/2024 6:21 PM CDT [facility] Blood Venipuncture / Unknown 12/29/2024 5:50 PM CDT 12/29/2024 6:01 PM CDT Nikhil Galvan MD CHEMISTRY ORDERABLES Final Result [facility] [address] [place] [address] * (ABNORMAL) CMP (12/29/2024 5:50 PM CDT) SODIUM 137 136 - 145 mmol/L 12/29/2024 6:21 PM CDT [facility] POTASSIUM 5.0 3.5 - 5.1 mmol/L 12/29/2024 6:21 PM CDT [facility] CHLORIDE 98 98 - 107 mmol/L 12/29/2024 6:21 PM CDT [facility] CO2, VENOUS 24 22 - 30 mmol/L 12/29/2024 6:21 PM CDT [facility] ANION GAP 20.0(H) <18.0 mmol/L 12/29/2024 6:21 PM CDT [facility] GLUCOSE 137(H) 70 - 99 mg/dL 12/29/2024 6:21 PM CDT [facility] BUN 27(H) 8 - 26 mg/dL 12/29/2024 6:21 PM CDT [facility] CREATININE, BLOOD 1.31(H) 0.70 - 1.30 mg/dL 12/29/2024 6:21 PM CDT [facility] BUN/CREATININE RATIO 21(H) 12 - 20 ratio 12/29/2024 6:21 PM CDT [facility] TOTAL PROTEIN 8.8(H) 6.0 - 8.0 g/dL 12/29/2024 6:21 PM CDT [facility] ALBUMIN 4.4 3.5 - 5.0 g/dL 12/29/2024 6:21 PM CDT [facility] A/G RATIO 1.0 1.0 - 2.2 12/29/2024 6:21 PM CDT [facility] CALCIUM 9.2 8.7 - 10.5 mg/dL 12/29/2024 6:21 PM CDT [facility] T BILI 0.3 0.2 - 1.2 mg/dL 12/29/2024 6:21 PM CDT [facility] SGOT (AST) 26 <43 U/L 12/29/2024 6:21 PM CDT [facility] SGPT (ALT) 21 <56 U/L 12/29/2024 6:21 PM CDT [facility] ALKALINE PHOSPHATASE 254(H) 40 - 150 U/L 12/29/2024 6:21 PM CDT [facility] GFR, ESTIMATED 60 >=60 12/29/2024 6:21 PM CDT [facility] Comment: Creatinine Clearance is the preferred criteria for selecting drug dose adjustments in renally impaired patients. The GFR is provided as additional pertinent clinical information. GFR is reported in mL/min/1.73 sq m. Calculation based on the Chronic Kidney Disease Epidemiology Collaboration (CKD- EPI) equation refit without adjustment for race. GFR, EST. >60 >=60 025 6:21 PM CDT [facility] GFR, EST. NONAFRICAN 55(L) >=60 12/29/2024 6:21 PM CDT [facility] Blood Venipuncture / Unknown 12/29/2024 5:50 PM CDT 12/29/2024 6:01 PM CDT us Nikhil Galvan MD CHEMISTRY ORDERABLES Final Result [facility] [address] [place] [address] from Last 3 Months Insurance MEDICARE Care Teams Senior Property Manager Relationship Specialty Start Date End Date Provider, None [place] PCP - General 06/29/24
== END 2025-03-05 12:25 | disposition home or self-care (01) ==
PROVIDERS: PCP Family Medicine; Visit Provider Urology
DX: R93.89 Abnormal findings on diagnostic imaging of other specified body structures (principal); C61 Malignant neoplasm of prostate
CPT/HCPCS: 78815; A9552; A9596